=== PATIENT | male | born 1970 | race Caucasian/White ===

== ENCOUNTER 2016-10-12 15:40 | Emergency (ER) | payer OTHER ==
[~2016-10-12] VITALS: Ht 193 cm; Wt 97.5 kg
[2016-10-12 15:41] VITALS: BP 134/99
[2016-10-12] MEDS ORDERED: TESSALON PERLE100 MG PO (15:55)
[2016-10-12] MEDS ORDERED: MUCINEX TA600 MG/TA2 PO (15:55)
[2016-10-12] MEDS ORDERED: AMOXICILLIN 50500 MG PO (15:55)
== END 2016-10-12 16:15 | disposition home or self-care (01) ==
LOC: ER 15:40
DX: J06.9 Acute upper respiratory infection, unspecified (principal); K02.9 Dental caries, unspecified; B00.89 Other herpesviral infection; F17.210 Nicotine dependence, cigarettes, uncomplicated